=== PATIENT | male | born 1955 | race Caucasian/White ===

== ENCOUNTER 2020-04-11 17:40 | Emergency (ER) | payer OTHER ==
[~2020-04-11] VITALS: Ht 190.5 cm; Wt 118.0 kg
[2020-04-11] MEDS ORDERED: SODIUM CHLORIDE FLUSH 10ML SYR IVF ONE (18:00)
[2020-04-11] MEDS ORDERED: ONDANSETRON 2MG/ML, 2ML IVPush ONE (18:00)
[2020-04-11] MEDS ORDERED: MORPHINE SULFATE 4 MG/ML, 1ML IVPush PRN (18:00)
[2020-04-11] MEDS ORDERED: MORPHINE SULFATE 4 MG/ML, 1ML ONE (18:08)
[2020-04-11] MEDS ORDERED: ONDANSETRON 2MG/ML, 2ML ONE (18:08)
[2020-04-11 18:38] LABS: BASOPHILS # (AUTO) 0.06 x10^3/uL (0-0.1); BASOPHILS % (AUTO) 0 % (0-1); EOSINOPHILS # (AUTO) 0.25 x10^3/uL (0-0.4); EOSINOPHILS % (AUTO) 2 % (1-7); LYMPHOCYTES # (AUTO) 2.45 x10^3/uL (1-3.4); LYMPHOCYTES % (AUTO) 16 % (22-44); MD NO; MEAN CORPUSCULAR HEMOGLOBIN 30.9 pg (27.5-34.5); MEAN CORPUSCULAR HGB CONC 34.1 g/dL (33.2-36.2); MEAN CORPUSCULAR VOLUME 90.6 fL (81-97); MEAN PLATELET VOLUME 7.7 fL (7.4-10.4); MONOCYTES # (AUTO) 1.11 x10^3/uL (0.2-0.8); MONOCYTES % (AUTO) 7 % (2-9); NEUTROPHILS # (AUTO) 11.16 x10^3/uL (1.8-6.8); NEUTROPHILS % (AUTO) 74 % (42-75); PLATELET COUNT 282 x10^3/uL (130-400); RED BLOOD COUNT 4.63 x10^6/uL (4.38-5.82); RED CELL DISTRIBUTION WIDTH 13.6 % (9.4-14.8)
--- NOTE | 2020-04-11 18:46 | NUR ---
PT IN HOSPITAL GOWN. PT ON VITALS MONITORS. PT HAS BEEN MEDICATED ORDERED. PT GIVEN CUP AND URINAL TO COLLECT URINE SAMPLE. AT BEDSIDE.
[2020-04-11 18:51] LABS: ALANINE AMINOTRANSFERASE 31 U/L (12-78); ALBUMIN 3.5 g/dL (3.4-5.0); ANION GAP 6 mmol/L (5-15); CALCIUM 8.7 mg/dL (8.5-10.1); CHLORIDE 106 mmol/L (98-107); CREATININE 0.83 mg/dL (0.7-1.3)
[2020-04-11 18:54] LABS: ALKALINE PHOSPHATASE 79 U/L (45-117); BILIRUBIN,TOTAL 0.4 mg/dL (0.2-1.0); TOTAL PROTEIN 7.3 g/dL (6.4-8.2)
[2020-04-11 19:36] VITALS: BP 147/80
[2020-04-11 19:58] LABS: MICROSCOPIC NOT IND
--- NOTE | 2020-04-11 20:09 | NUR ---
RETURNED FROM CT SCAN.
[2020-04-11] MEDS ORDERED: OMNIPAQUE 350 MG/ML, 100ML BOTTLE ONE (20:16)
== END 2020-04-11 21:21 | disposition home or self-care (01) ==
LOC: ED 19:05
DX: K40.90 Unilateral inguinal hernia, without obstruction or gangrene, not specified as recurrent (principal); I10 Essential (primary) hypertension; E78.5 Hyperlipidemia, unspecified; E78.00 Pure hypercholesterolemia, unspecified
CPT/HCPCS: 36415; 74177; 80053; 81003; 83690; 85025; 96374; 96375; 99285; J2270; J2405; Q9967

== ENCOUNTER → 2020-05-12 | Outpatient (CLI) | payer OTHER ==
[~2020-05-12] MED LIST: ASCO100018 PO; CALC-534 PO; CHLO25TA PO; CHOL10003 PO; CINN500C2 PO; EZET1TAB35 PO; GLUC15006 PO; LEVO50TA PO; LISI-170 PO; MELA10TA PO; METH500C3 PO; MULT-658 PO; SELE200T17 PO; UBID100C41 PO; chondroitin PO; chromium PO; magnesium PO
[2020-05-12 16:07] LABS: ALBUMIN 3.9 g/dL (3.4-5.0); ANION GAP 6 mmol/L (5-15); CALCIUM 9.4 mg/dL (8.5-10.1); CHLORIDE 101 mmol/L (98-107)
[2020-05-12 16:12] LABS: ALANINE AMINOTRANSFERASE 29 U/L (12-78); ALKALINE PHOSPHATASE 83 U/L (45-117); BILIRUBIN,TOTAL 0.3 mg/dL (0.2-1.0); CREATININE 0.96 mg/dL (0.7-1.3); TOTAL PROTEIN 8.3 g/dL (6.4-8.2)
== END | disposition home or self-care (01) ==
LOC: STAR 14:16
PROVIDERS: ATTEND Surgery Vascular Surgery
DX: Z01.812 Encounter for preprocedural laboratory examination (principal); Z20.828 Contact with and (suspected) exposure to other viral communicable diseases
CPT/HCPCS: 36415; 80053; 87635; 93005

== ENCOUNTER 2020-05-16 06:21 | Day surgery (SDC) | payer OTHER ==
[~2020-05-16] VITALS: Ht 190.5 cm; Wt 115.0 kg
[2020-05-16 06:42] VITALS: BP 151/71
[2020-05-16] MEDS ORDERED: CHLORHEXIDINE 15 ML UDC MM STA (06:46)
[2020-05-16] MEDS ORDERED: CHLORHEXIDINE 15 ML UDC ONE (06:50)
[2020-05-16] MEDS ORDERED: BUPIVACAINE/PF 0.5% ONE (06:56)
[2020-05-16] MEDS ORDERED: EPINEPHRINE 1 MG/ML, 1ML ONE (06:56)
[2020-05-16] MEDS ORDERED: BACITRACIN 50,000 UNIT ONE (06:57)
[2020-05-16] MEDS ORDERED: LACTATED RINGERS 1,000 ML IV SCH (07:00)
[2020-05-16] MEDS ORDERED: PROPOFOL 50 ML ONE (07:27)
[2020-05-16] MEDS ORDERED: FENTANYL PF 250 MCG/5ML ONE (07:27)
[2020-05-16] MEDS ORDERED: MIDAZOLAM 1 MG/ML, 2ML ONE (07:27)
[2020-05-16] MEDS ORDERED: SUCCINYLCHOLINE 20 MG/ML, 10ML ONE (07:33)
[2020-05-16] MEDS ORDERED: DEXAMETHASONE 4 MG/ML, 1ML ONE (07:33)
[2020-05-16] MEDS ORDERED: CEFAZOLIN 1,000 MG ONE (07:33)
[2020-05-16] MEDS ORDERED: PROPOFOL 10 MG/ML, 20ML ONE (07:33)
[2020-05-16] MEDS ORDERED: ONDANSETRON 2MG/ML, 2ML ONE (07:33)
[2020-05-16] MEDS ORDERED: ROCURONIUM 10 MG/ML,10ML ONE (07:33)
[2020-05-16] MEDS ORDERED: BACITRACIN 50,000 UNIT IRRIG ONE (07:42)
[2020-05-16] MEDS ORDERED: BUPIVACAINE/PF-EPI 0.5% 1:200K INFIL ONE (07:42)
[2020-05-16] MEDS ORDERED: EPHEDRINE 50 MG/ML, 1ML IVPush PRN (08:00)
[2020-05-16] MEDS ORDERED: DIPHENHYDRAMINE 50 MG/ML, 1ML IVPush PRN (08:00)
[2020-05-16] MEDS ORDERED: PROMETHAZINE 25 MG/ML, 1ML IVPush PRN (08:00)
[2020-05-16] MEDS ORDERED: ONDANSETRON 2MG/ML, 2ML IVPush PRN (08:00)
[2020-05-16] MEDS ORDERED: MEPERIDINE/PF 25MG/0.5ML IVPush PRN (08:00)
[2020-05-16] MEDS ORDERED: LABETALOL 5MG/ML, 20ML IV PRN (08:00)
[2020-05-16] MEDS ORDERED: EPHEDRINE 50 MG/ML, 1ML IM PRN (08:00)
[2020-05-16] MEDS ORDERED: OXYcodone 5 MG/5 ML ORAL.SOL UDC PO PRN (08:00)
[2020-05-16] MEDS ORDERED: DIAZEPAM 5 MG/ML, 2ML IVPush PRN (08:00)
[2020-05-16] MEDS ORDERED: ACETAMINOPHEN 325 MG TABLET PO PRN (08:00)
[2020-05-16] MEDS: FENTANYL PF 100 MCG/2ML IV PRN ×3 (09:09→09:43)
[2020-05-16] MEDS ORDERED: OXYcodone 5 MG/5 ML ORAL.SOL UDC ONE (09:15)
[2020-05-16] MEDS ORDERED: FENTANYL PF 100 MCG/2ML ONE (09:15)
[2020-05-16] MEDS ORDERED: MORPHINE SULFATE 4 MG/ML, 1ML ONE ×2 (09:44→10:09)
[2020-05-16] MEDS: morphine SULFATE 10 MG/ML, 1ML IVPush PRN ×4 (09:45→10:10)
== END 2020-05-16 12:00 | disposition home or self-care (01) ==
LOC: OUT 06:21
PROVIDERS: ATTEND Surgery Vascular Surgery
DX: K40.20 Bilateral inguinal hernia, without obstruction or gangrene, not specified as recurrent (principal); I10 Essential (primary) hypertension; E03.9 Hypothyroidism, unspecified; G47.30 Sleep apnea, unspecified; E78.00 Pure hypercholesterolemia, unspecified; Z79.890 Hormone replacement therapy; Z79.899 Other long term (current) drug therapy; Z96.643 Presence of artificial hip joint, bilateral; Z98.890 Other specified postprocedural states; Z80.41 Family history of malignant neoplasm of ovary
CPT/HCPCS: 49505; C1781; J0171; J0330; J0690; J1100; J2250; J2270; J2405; J2704; J3010; J7120